=== PATIENT | male | born 1955 | race African-American/Black ===

== ENCOUNTER 2017-01-07 21:36 | Emergency (ER) | payer MEDICAID, OTHER ==
[~2017-01-07] VITALS: Ht 182.9 cm; Wt 76.6 kg
[~2017-01-07 21:36] MED LIST: HYDR25TA PO; LOSA50TA20 PO; METF100P3 MC; SIMV40TA5 PO
[2017-01-07 22:08] VITALS: BP 135/87
== END 2017-01-08 02:00 | disposition left against medical advice (07) ==
LOC: ER 21:36
DX: S80.861A Insect bite (nonvenomous), right lower leg, initial encounter (principal); Z53.21 Procedure and treatment not carried out due to patient leaving prior to being seen by health care provider; W57.XXXA Bitten or stung by nonvenomous insect and other nonvenomous arthropods, initial encounter; Y93.89 Activity, other specified; Y92.89 Other specified places as the place of occurrence of the external cause; Y99.8 Other external cause status

== ENCOUNTER 2017-01-08 07:06 | Emergency (ER) | payer MEDICAID, OTHER ==
[~2017-01-08] VITALS: Ht 182.9 cm; Wt 75.5 kg
[2017-01-08] MEDS ORDERED: ACETAMINOPHEN 500MG TABLET PO ONE (08:00)
[2017-01-08 08:04] VITALS: BP 152/84
== END 2017-01-08 08:20 | disposition home or self-care (01) ==
LOC: ER 07:55
DX: L03.115 Cellulitis of right lower limb (principal); I10 Essential (primary) hypertension; E78.00 Pure hypercholesterolemia, unspecified; E11.9 Type 2 diabetes mellitus without complications; Z88.0 Allergy status to penicillin; Z88.8 Allergy status to other drugs, medicaments and biological substances
CPT/HCPCS: 99283

== ENCOUNTER 2017-08-17 18:01 | Emergency (ER) | payer OTHER ==
[~2017-08-17] VITALS: Ht 185.4 cm; Wt 82.0 kg
[2017-08-17] MEDS ORDERED: SODIUM CHLORIDE 0.9% 2,000 ML IV ONE (20:11)
[2017-08-17] MEDS ORDERED: INSULIN REGULAR (HUMULIN R) 300UNITS/3ML SUBCUT ONE (20:15)
[2017-08-17 20:41] LABS: BASOPHILS % 0.4 % (0.0-2.0); EOSINOPHILS % 0.9 % (0.0-5.0); HEMATOCRIT. 49.1 % (42.0-52.0); HEMOGLOBIN. 16.3 g/dL (14.0-18.0); LYMPHOCYTES % 22.4 % (20.0-50.0); MEAN CORPUSCULAR HEMOGLOBIN 26.9 pg (28.0-32.0); MEAN CORPUSCULAR VOLUME 81.2 fL (80.0-94.0); MEAN PLATELET VOLUME 8.7 fl (7.4-10.4); MONOCYTES % 8.1 % (2.0-8.0); NEUTROPHILS % 68.2 % (40.0-76.0); PLATELET 204 x1000/uL (130-400); RED BLOOD CELL COUNT 6.04 mill/uL (4.7-6.1); RED CELL DISTRIBUTION WIDTH 13.8 % (11.6-14.6)
[2017-08-17 20:47] LABS: CHLORIDE 99 mEq/L (98-107)
[2017-08-17 20:54] LABS: BETA HYDROXYBUTYRATE 0.2 mMol/L (0.0-0.3)
[2017-08-17] MEDS ORDERED: METHYLPREDNISOLONE SOD SUCC 125 MG/2 ML VIAL IV ONE (22:15)
[2017-08-17] MEDS ORDERED: DIPHENHYDRAMINE 50MG/ML VIAL IV ONE (22:15)
[2017-08-17] MEDS ORDERED: FAMOTIDINE 20MG/2ML VIAL IV ONE (22:15)
[2017-08-17] MEDS ORDERED: KETOROLAC 30MG/ML VIAL IV ONE (23:00)
[2017-08-17] MEDS ORDERED: SULFAMETHOXAZOLE/TRIMETHOPRIM 800/160MG TABLET PO ONE (23:00)
[2017-08-18 02:08] VITALS: BP 139/87
== END 2017-08-18 02:06 | disposition home or self-care (01) ==
LOC: ER 18:26
DX: E11.65 Type 2 diabetes mellitus with hyperglycemia (principal); K13.0 Diseases of lips; E86.0 Dehydration; I10 Essential (primary) hypertension; Z88.0 Allergy status to penicillin; Z88.8 Allergy status to other drugs, medicaments and biological substances
CPT/HCPCS: 36415; 80053; 82010; 82962; 85025; 96361; 96372; 96374; 96375; 99285; J1200; J1815; J1885; J2930; J3490; J7030; Z7610

== ENCOUNTER 2017-12-30 15:06 | Emergency (ER) | payer MEDICAID, OTHER ==
[~2017-12-30] VITALS: Ht 182.9 cm; Wt 78.0 kg
[2017-12-30] MEDS ORDERED: IBUPROFEN 600MG TABLET PO ONE (16:00)
[2017-12-30] MEDS ORDERED: FLUORESCEIN SODIUM 1MG/STRIP OP ONE (17:15)
[2017-12-30] MEDS ORDERED: TETRACAINE 0.5% OPHTH DROPS 4ML OP ONE (17:15)
[2017-12-30 17:43] VITALS: BP 146/84
== END 2017-12-30 17:47 | disposition home or self-care (01) ==
LOC: ER 15:06
DX: S05.02XA Injury of conjunctiva and corneal abrasion without foreign body, left eye, initial encounter (principal); R22.0 Localized swelling, mass and lump, head; E78.00 Pure hypercholesterolemia, unspecified; E11.9 Type 2 diabetes mellitus without complications; I10 Essential (primary) hypertension; Z79.84 Long term (current) use of oral hypoglycemic drugs; Z88.0 Allergy status to penicillin; Z88.8 Allergy status to other drugs, medicaments and biological substances; X58.XXXA Exposure to other specified factors, initial encounter; Y93.89 Activity, other specified; Y92.89 Other specified places as the place of occurrence of the external cause; Y99.8 Other external cause status
CPT/HCPCS: 82962; 99283; Z7610